=== PATIENT | female | born 1985 | race Caucasian/White ===

== ENCOUNTER 2016-09-16 18:13 | Emergency (ER) | payer OTHER ==
[~2016-09-16 18:13] MED LIST: AUGMENTIN XR 11 EACH PO; COUMADIN5 MG PO; LOVENOX DP120 MG/0.8 SQ; MAALOX DPS30 ML PO; MAGNESIUM250 M1 PO; MAXALT10 MG PO; MELATONIN1 MG PO; MIRALAX PACKET17 GM PO; MONTELUKAST SOD10 MG PO; ROBITUSSIN100 MG/5 M PO; SUDAFED DPS30 MG PO; SURFAK DPS240 MG PO; TESSALON PERLE100 M1 PO; TYLENOL DPS325 MG PO; ZYRTEC10 M3 PO
--- NOTE | 2016-10-09 14:39 | ER ---
ADMIT: 09/16/2016 RM/LOC: ER [facility] MR#: [id number] [address] [id number] SUSIE CAPUTO [address] [place] [address] Emergency Room Report SEX: F AGE: 31 : 1985 DATE: 09/16/2016 ADDENDUM: CHIEF COMPLAINT: Chest pain. HISTORY OF PRESENT ILLNESS: This is a 31-year-old female, who has a history of PEs. She is worried that these have returned. COURSE IN THE EMERGENCY ROOM: I did a CT of her chest, it is negative for any PEs, but she does have some nodular densities in the right lung. I told her this could be some scaring from her prior emboli, but told her to make sure that she follows up with Dr. Hancock regarding findings. Her ultrasound of her leg was also negative for any DVT. They discharged her home. I told her to follow up again with Dr. Hancock as needed. CLINICAL IMPRESSION: Atypical chest pain. ASHWINI Sylvester / Remberto Eddy MD / carol JOB #: [id number] CC: Foreign Khan MD, Attending Physician Rolando Hancock MD, Family Physician
== END 2016-09-16 22:20 | disposition home or self-care (01) ==
LOC: ER 18:13
DX: R07.89 Other chest pain (principal); Z86.711 Personal history of pulmonary embolism; Z90.89 Acquired absence of other organs; Z88.1 Allergy status to other antibiotic agents; Z88.8 Allergy status to other drugs, medicaments and biological substances